=== PATIENT | male | born 1980 | race Caucasian/White ===

== ENCOUNTER → 2024-11-25 | Outpatient (CLI) | payer BC ==
[~2024-11-25] MED LIST: DOXE50CA PO; HYDR50TA70 PO; METO1TAB7 PO; PHEN-239 PO; VENL75TA2 PO; VIVI380I IM
== END ==
LOC: M PLAIMG 14:07 → EDUNIT# 15:15
PROVIDERS: ATTEND Otolaryngology
DX: Z53.9 Procedure and treatment not carried out, unspecified reason (principal)

== ENCOUNTER 2024-11-28 12:35 | Day surgery (SDC) | payer BC ==
[~2024-11-28] VITALS: Ht 188 cm; Wt 129.7 kg
[2024-11-28] MEDS ORDERED: fentaNYL 100 MCG/2 ML INJECTION As Ordered ONE (14:33)
[2024-11-28] MEDS ORDERED: ACETAMINOPHEN 1000MG/100ML IV BAG As Ordered ONE (14:33)
[2024-11-28] MEDS ORDERED: MIDAZOLAM INJ 2MG/2ML VIAL As Ordered ONE (14:34)
[2024-11-28] MEDS ORDERED: ROCURONIUM BROMIDE 50MG/5ML VIAL As Ordered ONE (14:34)
[2024-11-28] MEDS ORDERED: SUGAMMADEX SODIUM 500 MG/5 ML VIAL (BRIDION) As Ordered ONE (14:34)
[2024-11-28] MEDS ORDERED: LIDOCAINE 2% 100MG/5ML SDV (FOR ANES.) As Ordered ONE (14:34)
[2024-11-28] MEDS ORDERED: propofoL 200 MG/20 ML VIAL As Ordered ONE (14:34)
[2024-11-28] MEDS ORDERED: ONDANSETRON 4MG 2ML VIAL As Ordered ONE (14:35)
[2024-11-28] MEDS: LIDOCAINE W/EPINEPHRINE 1% 20ML VIAL As Ordered ONE (15:00)
[2024-11-28] MEDS ORDERED: HYDROmorphone HCL 2MG/ML 1ML VIAL As Ordered ONE (15:57)
[2024-11-28] MEDS ORDERED: ESMOLOL INJ 100MG/10ML VIAL As Ordered ONE (16:05)
[2024-11-28] MEDS ORDERED: ONDANSETRON 4MG 2ML VIAL IV PRN (17:45)
[2024-11-28] MEDS ORDERED: fentaNYL 100 MCG/2 ML INJECTION IV PRN (17:45)
[2024-11-28] MEDS ORDERED: NS (Normal Saline) 0.9% 1,000 ML IV SCH (17:45)
[2024-11-28] MEDS: oxyCODONE 5MG TAB PO PRN (17:53)
[2024-11-28] MEDS: HYDROMORPHONE HCL 0.5 MG/ 0.5 ML SYRINGE IV PRN (17:54)
[2024-11-28 18:35] VITALS: BP 136/66; TEMP 97.8; O2SAT 95
== END 2024-11-28 18:46 | disposition home or self-care (01) ==
LOC: M SDC 12:35
PROVIDERS: ATTEND Otolaryngology
DX: K13.21 Leukoplakia of oral mucosa, including tongue (principal); I10 Essential (primary) hypertension; K21.9 Gastro-esophageal reflux disease without esophagitis; L40.9 Psoriasis, unspecified; F41.9 Anxiety disorder, unspecified; Z79.899 Other long term (current) drug therapy
CPT/HCPCS: 40820; 41100; 88305; 93005; J0131; J1100; J1171; J2250; J2405; J3010

== ENCOUNTER → 2024-11-28 | Outpatient (CLI) | payer BC | LOC: M PLAIMG 11:06 | PROVIDERS: ATTEND Otolaryngology | DX: Z53.9 Procedure and treatment not carried out, unspecified reason (principal) ==